=== PATIENT | female | born 1995 | race African-American/Black ===

== ENCOUNTER → 2017-02-14 | Outpatient (CLI) | payer OTHER ==
[~2017-02-14] MED LIST: EFFE75CA75 PO; NO HOME MEDICATIONS; TRAZ25TA PO
[2017-02-14 12:16] LABS: MEAN CORPUSCULAR HEMOGLOBIN 29.4 pg (27.0-33.0); MEAN CORPUSCULAR HGB CONC 32.6 g/dl (32.0-36.5); MEAN CORPUSCULAR VOLUME 90.2 fl (80.0-96.0); PLATELET COUNT, AUTOMATED 237 10^3/uL (150-450); RED CELL DISTRIBUTION WIDTH 12.9 % (11.5-14.5)
== END ==
LOC: M LAB 10:35
PROVIDERS: ATTEND Nurse Practitioner Women's Health
DX: Z34.03 Encounter for supervision of normal first pregnancy, third trimester (principal)

== ENCOUNTER 2017-03-22 17:02 | Inpatient (IN) | payer OTHER ==
[2017-03-22] MEDS ORDERED: LR 1,000 ML IV (18:07)
[2017-03-22 18:51] LABS: HEMOGLOBIN 11.5 g/dl (12.0-16.0); MEAN CORPUSCULAR HEMOGLOBIN 28.8 pg (27.0-33.0); MEAN CORPUSCULAR HGB CONC 32.9 g/dl (32.0-36.5); MEAN CORPUSCULAR VOLUME 87.7 fl (80.0-96.0); PLATELET COUNT, AUTOMATED 254 10^3/uL (150-450); RED BLOOD COUNT 3.99 10^6/uL (4.00-5.40); WHITE BLOOD COUNT 11.6 10^3/uL (4.0-10.0)
[2017-03-22] MEDS: PENICILLIN G POTASSIUM IV 5 MU in D5W MINI-BAG PLUS 100 ML IV (19:18)
[2017-03-22] MEDS ORDERED: FENTANYL 2MCG/ML ROPIVACAINE 0.2% IN 0.9% NACL 200ML IVBAG As Ordered (21:27)
[2017-03-22] MEDS ORDERED: FENTANYL/ROPIVACAINE/NACL BAG 200 ML EPIDURAL (22:30)
[2017-03-22] MEDS ORDERED: ePHEDrine INJ 50 MG/ML VIAL IV (22:30)
[2017-03-22] MEDS ORDERED: ONDANSETRON 4MG/2ML VIAL (J2405) IV (22:30)
[2017-03-22] MEDS ORDERED: EPIDURAL/PCA KEYS XX (22:30)
[2017-03-22] MEDS ORDERED: LACTATED RINGER'S 1000 ML IV (22:30)
[2017-03-22] MEDS ORDERED: REFRIGERATOR IV KEYS XX (22:30)
[2017-03-22] MEDS ORDERED: EPIDURAL COMMENT XX (22:30)
[2017-03-22] MEDS ORDERED: diphenhydrAMINE INJ 50MG/ML VIAL (J1200) IV (22:30)
[2017-03-22] MEDS ORDERED: NALOXONE INJ 0.4 MG/1 ML VIAL (J2310) IV (22:30)
[2017-03-22] MEDS ORDERED: OXYTOCIN 30 UNITS IN 0.9% NaCl 500ML IV BAG (J2590) As Ordered (22:42)
[2017-03-23] MEDS: PENICILLIN G POTASSIUM IV 2.5 MU in APPROPRIATE DILUENT 1 EA IV (00:01)
[2017-03-23 04:01] LABS: CORD GAS ABE A -2.7; CORD GAS ABE V -4.8; CORD GAS HCO3 A 25.2 MEQ/L; CORD GAS O2 SAT A < 15.0 %; CORD GAS O2 SAT V 40.3 %; CORD GAS PCO2 A 57.1 mmHg; CORD GAS PCO2 V 47.2 mmHg; CORD GAS PH A 7.263 UNITS; CORD GAS PH V 7.286 UNITS; CORD GAS PO2 A < 10.0 mmHg; CORD GAS PO2 V 18.6 mmHg; CORD GAS SBC V 19.2 MEQ/L; CORD GAS TCO2 V 23.4 MEQ/L
[2017-03-23] MEDS ORDERED: OXYTOCIN INJ 10 UNITS/ML VIAL (J2590) As Ordered (04:44)
[2017-03-23] MEDS ORDERED: OXYTOCIN DRIP 30 UNITS in APPROPRIATE DILUENT 1 EA IV (05:17)
[2017-03-23] MEDS ORDERED: OXYTOCIN INJ 10 UNITS/ML VIAL (J2590) IV (05:30)
[2017-03-23] MEDS ORDERED: METHYLERGONOVINE MALEATE 0.2 MG TAB PO (05:30)
[2017-03-23] MEDS ORDERED: DOCUSATE SODIUM 100 MG CAP PO (05:30)
[2017-03-23] MEDS ORDERED: MOM 30ML SUSPENSION UDC PO (05:30)
[2017-03-23] MEDS: MEASLES,MUMPS,RUBELLA VACCINE INJ (MMR-II) (90707) SC (07:16)
[2017-03-23] MEDS: RHOGAM 300 MCG (1500 IU) INJ (J2790) IM (07:16)
[2017-03-23] MEDS: PRENATAL VITAMINS CHEWABLE TABLET PO (09:17)
[2017-03-23] MEDS: IBUPROFEN 800 MG TAB PO (20:05)
[2017-03-23] MEDS: DIBUCAINE 1% OINTMENT 30GM TOP (20:06)
[2017-03-24 07:04] LABS: MEAN CORPUSCULAR HGB CONC 33.3 g/dl (32.0-36.5); PLATELET COUNT, AUTOMATED 226 10^3/uL (150-450); RED BLOOD COUNT 3.45 10^6/uL (4.00-5.40); WHITE BLOOD COUNT 13.4 10^3/uL (4.0-10.0)
[2017-03-24] MEDS: PRENATAL VITAMINS CHEWABLE TABLET PO (08:59)
[2017-03-24] MEDS: IBUPROFEN 800 MG TAB PO (15:17)
[2017-03-24] MEDS: LACTATED RINGER'S 1000 ML IV (19:21)
[2017-03-24] MEDS: ACETAMINOPHEN 500 MG TAB PO (20:14)
== END 2017-03-25 11:15 | disposition home or self-care (01) | DRG 775 ==
LOC: M LDO 17:02 → M OBS 03-23 06:54 → M LDI 18:00
PROVIDERS: Obstetrics & Gynecology
PROC: 10D07Z6 Extraction of Products of Conception, Vacuum, Via Natural or Artificial Opening (ICD-10-PCS; principal; 2017-03-23)
PROC: 0HQ9XZZ Repair Perineum Skin, External Approach (ICD-10-PCS; 2017-03-23)
DX: O99.824 Streptococcus B carrier state complicating childbirth (principal); Z37.0 Single live birth; Z3A.39 39 weeks gestation of pregnancy; O76 Abnormality in fetal heart rate and rhythm complicating labor and delivery; O70.0 First degree perineal laceration during delivery